=== PATIENT | male | born 1945 | race Caucasian/White ===

== ENCOUNTER 2016-11-23 13:38 | Emergency (ER) | payer OTHER ==
[~2016-11-23] VITALS: Ht 172.7 cm; Wt 90.0 kg
[~2016-11-23 13:38] MED LIST: HYDROCO/APAP1 TA1 OR; METFORMIN1000 MG OR; NOVOLIN SC
[2016-11-23] MEDS ORDERED: A+D PREVENT TOP ×2 (15:23→15:58)
[2016-11-23] MEDS ORDERED: CLINDAMYCIN TOP ×2 (15:24→15:58)
[2016-11-23] MEDS ORDERED: NOVOLOG FL100 UNIT/M SC ×2 (15:25→15:58)
[2016-11-23] MEDS ORDERED: COLACE100 MG PO ×2 (15:25→15:58)
[2016-11-23] MEDS ORDERED: METFORMIN500 M2 PO ×2 (15:27→15:58)
[2016-11-23] MEDS ORDERED: LEVEMIR FL100 UNIT/M SC ×2 (15:27)
[2016-11-23] MEDS ORDERED: LOPRESSOR25 M1 PO ×2 (15:28→15:58)
[2016-11-23] MEDS ORDERED: VENLAFAXINE HC150 MG PO ×2 (15:28→15:58)
[2016-11-23] MEDS ORDERED: LYRICA75 MG PO ×2 (15:29→15:58)
[2016-11-23 16:10] VITALS: BP 149/79
== END 2016-11-23 16:10 | disposition home or self-care (01) | DRG 951 ==
LOC: ED 13:38
DX: Z76.0 Encounter for issue of repeat prescription (principal); E11.9 Type 2 diabetes mellitus without complications; S31.109D Unspecified open wound of abdominal wall, unspecified quadrant without penetration into peritoneal cavity, subsequent encounter; X58.XXXD Exposure to other specified factors, subsequent encounter; Z79.4 Long term (current) use of insulin; Z79.84 Long term (current) use of oral hypoglycemic drugs